=== PATIENT | female | born 2000 | race Two or more races ===

== ENCOUNTER 2022-12-22 05:41 | Emergency (ER) | payer MEDICAID, OTHER ==
[~2022-12-22] VITALS: Ht 170.2 cm; Wt 72.1 kg
[2022-12-22 05:49] VITALS: BP 119/70; PULSE 69; RESP 16; O2SAT 100
== END 2022-12-22 07:14 | disposition left against medical advice (07) ==
LOC: ER 05:41
DX: O26.891 Other specified pregnancy related conditions, first trimester (principal); G47.09 Other insomnia; Z3A.01 Less than 8 weeks gestation of pregnancy; Z53.21 Procedure and treatment not carried out due to patient leaving prior to being seen by health care provider

== ENCOUNTER 2024-04-03 14:50 | Emergency (ER) | payer MEDICAID ==
[~2024-04-03] VITALS: Ht 170.2 cm; Wt 77.0 kg
[2024-04-03 15:04] VITALS: BP 145/77; PULSE 78; RESP 18; O2SAT 98
--- NOTE | 2024-04-03 15:05 | ED.PDOC ---
History of Present Illness HPI Comments 23-year-old female with PMHx Hypothyroidism presents with a chief complaint of abdominal pain with nausea and vomiting while being currently . Patient mentions that she is currently 5 months , . Patient reports that her abdominal pain is localized diffusely, non-radiating, describes as cramping. Patient mentions that the pain is most prominent after eating food and induces vomiting. Patient denies any urinary symptoms. Patient last smoked marijuana x two weeks ago. No other symptoms or modifying factors present at this time. Time Seen by MD: 15:00 Reviewed Notes: Nurses Notes, Medications, Allergies Allergies: Coded Allergies: NO KNOWN ALLERGIES (Unverified , 12/22/22) Information Source: Patient Mode of Arrival: Ambulatory Severity: Moderate Timing: Hours Duration: Since onset Prehospital treatment: None Past Medical History PAST MEDICAL HISTORY: Thyroid (HYPOTHYROIDISM) Surgical History: Denies all surgeries HAND OR MACHINE PASTER History: Denies all HAND OR MACHINE PASTER Hx Family History Family History: Reviewed,noncontributory to illness Social History Smoker: Non-Smoker Alcohol: Denies ETOH Use Drugs: Marijuana Lives In: Home Constitutional: denies: chills, diaphoresis, fatigue, fever, malaise, sweats, weakness, others EENTM: denies: blurred vision, double vision, ear bleeding, ear discharge, ear drainage, ear pain, ear ringing, eye pain, eye redness, hearing loss, mouth pain, mouth swelling, nasal discharge, nose bleeding, nose congestion, nose pain, photophobia, tearing, throat pain, throat swelling, voice changes, others Respiratory: denies: cough, hemoptysis, orthopnea, SOB at rest, shortness of breath, SOB with excertion, stridor, wheezing, others Cardiovascular: denies: chest pain, dizzy spells, diaphoresis, Dyspnea on exertion, edema, irregular heart beat, left arm pain, lightheadedness, palpitations, PND, syncope, others Gastrointestinal: reports: abdominal pain, nausea, vomiting; denies: abdomen distended, blood streaked bowels, constipated, diarrhea, dysphagia, difficulty swallowing, hematemesis, melena, poor appetite, poor fluid intake, rectal bleeding, rectal pain, others Genitourinary: reports: ; denies: abnormal vagina bleeding, burning, dyspareunia, dysuria, flank pain, frequency, hematuria, incontinence, pain, vagina discharge, urgency, others Neurological: denies: dizziness, fainting, headache, left sided numbness, left sided weakness, numbness, paresthesia, pre-existing deficit, right sided numbness, right sided weakness, seizure, speech problems, tingling, tremors, weakness, others Musculoskeletal: denies: back pain, gout, joint pain, joint swelling, muscle pain, muscle stiffness, neck pain, others Integumetry: denies: bruises, change in color, change in hair/nails, dryness, laceration, lesions, lumps, rash, wounds, others Allergic/Immunocompromised: denies: Difficulty Healing, Frequent Infections, Hives, Itching, others Hematologic/Lymphatic: denies: anemia, blood clots, easy bleeding, easy bruising, swollen glands, others Endocrine: denies: excessive hunger, excessive sweating, excessive thirst, excessive urination, flushing, intolerance to cold, intolerance to heat, unexplained weight gain, unexplained weight loss, others Psychiatric: denies: anxiety, bipolar disorder, depression, hopeless, panic disorder, schizophrenia, sleepless, suicidal, others All Other Systems: Reviewed and Negative Physical Exam General Appearance: No Apparent Distress HEENT: Normal ENT Inspection, Pharynx Normal, TMs Normal Neck: Full Range of Motion, Non-Tender, Normal, Normal Inspection Respiratory: Chest Non-Tender, Lungs Clear, No Accessory Muscle Use, No Res piratory Distress, Normal Breath Sounds Cardiovascular: No Edema, No JVD, No Murmur, No Gallop, Normal Peripheral Pulses, Regular Rate/Rhythm Breast Exam: Deferred Gastrointestinal: Non Tender, No Pulsatile Mass, Normal Bowel Sounds, Soft, Other (Gravid uterus) Genitalia: Deferred Pelvic: Deferred Rectal: Deferred Extremities: No calf tenderness, Normal capillary refill, Normal inspection, Normal range of motion, Non-tender, No pedal edema Musculoskeletal : Apperance: Normal Neurologic: Alert, railroad detective II-XII nml as Tested, No Motor Deficits, Normal Affect, Normal Mood, No Sensory Deficits Cerebellar Function: Normal Reflexes: Normal Skin: Dry, Normal Color, Warm Lymphatic: No Adenopathy Was a procedure done? Was a procedure done?: No Differential Dx Considerations may include: Hyperemesis gravidarum Abdominal pain in X-Ray, Labs, Meds, VS The patient was being sent to labor and delivery for further evaluation The patient was officially cleared from the emergency department's Time of 1ST Reevaluation: 15:30 Reevaluation 1ST: Unchanged Patient Education/Counseling: Diagnosis, Treatment, Prognosis Family Education/Counseling: No Family Present Departure 1 Departure Time of Disposition: 15:09 Impression: Primary Impression: Abdominal pain in Qualified Codes: O26.899 - Other specified related conditions, unspecified trimester; R10.9 - Unspecified abdominal pain Disposition: 01 HOME / SELF CARE / HOMELESS (The patient was cleared to go to labor and delivery) Condition: Fair Critical Care Note Critical Care Time?: No Stability Stability form required: No Heart Score Heart Score: Heart Score Response (Comments) Value History N/A 0 EKG N/A 0 Age N/A 0 Risk Factors N/A 0 Troponin N/A 0 Total 0 I personally scribed for ELIZABETH SAENZ MD ([email or web address]) on 04/03/24 at 15:05. Electronically submitted by Luis Reese ([email or web address]). ELIZABETH SAENZ MD Apr 03, 2024 15:05
[2024-04-03] MEDS ORDERED: ASPI1TAB20 PO (17:08)
[2024-04-03] MEDS ORDERED: DOXY25TA9 PO (17:08)
[2024-04-03] MEDS ORDERED: PYRI1TAB10 PO (17:08)
== END 2024-04-03 15:40 | disposition left against medical advice (07) ==
LOC: ER 14:50
DX: O26.892 Other specified pregnancy related conditions, second trimester (principal); R10.9 Unspecified abdominal pain; O21.9 Vomiting of pregnancy, unspecified; E03.9 Hypothyroidism, unspecified; Z3A.21 21 weeks gestation of pregnancy

== ENCOUNTER 2024-04-03 15:08 | Observation (INO) | payer MEDICAID ==
--- NOTE | 2024-04-03 17:05 | DVHDS2 ---
Physician Discharge Progress N Final Diagnosis: round ligament pain N/V - resolved Operations or Procedures: Operations or Procedures S: 23yo IUP@21.5wks presents to OB triage from ED with c/o cramping and N/V today but now it is gone. No PNC, moved from [place] and has [place] [facility]. She has called [facility] so they switch to IE, but still pending. Denies UTI s/sx. Pt reports taking rx PNV but they made her more sick, so she stopped. +FM, denies VB/UCs O: VSS UA wnl +FHTs via doppler by RN Abdomen palpated soft TOCO: no UCs noted A: 23yo IUP@21.5wks Round ligament pain N/V, resolved P: D/C home Stay hydrated and eat small meals q2-3hrs to aid in nausea Recommended taking OTC PNV with methylfolate not folic acid. Rx sent for baby aspirin/vitamin B6/unisom SAB precautions reviewed Dr. Urbano consulted, agrees with POC. Pt scheduled to see Dr. Urbano at [facility] on 04/08/24 at 0900 to establish care and get assistance with medi-connor. Condition on Discharge: Stable Disposition: Home Discharge Instructions: Diet: Regular Activity: No Restrictions, As Tolerated Medications: see med list Follow Up Care: Specialist: Pt scheduled to see Dr. Urbano at [facility] on 04/08/24 at 0900 to establish care and get assistance with medi-con[facility]. Discharge Statement: "Patient was advised to return to the ER or call 911 if any headaches, dizziness, shortness of breath, chest pain, abdominal pain, bleeding, fevers, or worsening of medical condition. Patient was counseled about treatment plan, medications, possible side effects, patientverbalized understanding. All questions were answered to the best of my ability. This discharge took greater then 30 minutes in planning, reviewing documentation, counseling the patient, and discussing with other team members." LINK CABRAL CNM Apr 03, 2024 17:05
[2024-04-03] MEDS ORDERED: DOXY25TA9 PO (17:08)
[2024-04-03] MEDS ORDERED: ASPI1TAB20 PO (17:08)
[2024-04-03] MEDS ORDERED: PYRI1TAB10 PO (17:08)
== END 2024-04-03 16:26 | disposition home or self-care (01) ==
LOC: LDRP 15:08 → UNDOADMOB 15:08 → LDRP 15:24 → UNDODISOB 16:26
PROVIDERS: ADMIT Obstetrics & Gynecology; ATTEND Obstetrics & Gynecology
DX: O26.892 Other specified pregnancy related conditions, second trimester (principal); R10.2 Pelvic and perineal pain; O99.322 Drug use complicating pregnancy, second trimester; F12.90 Cannabis use, unspecified, uncomplicated; Z3A.21 21 weeks gestation of pregnancy; Z79.899 Other long term (current) drug therapy
CPT/HCPCS: 59025; 81002; 94760; G0378

== ENCOUNTER 2024-04-22 10:55 | Observation (INO) | payer MEDICAID ==
[~2024-04-22 10:55] MED LIST: ASPI1TAB20 PO; DOXY25TA9 PO; PYRI1TAB10 PO
[2024-04-22 11:35] LABS: Urine Bacteria None Seen /hpf (None Seen)
[2024-04-22 11:51] LABS: Urine Blood Negative /uL (Negative); Urine Clarity Clear (Clear); Urine Color Light-Yellow (Yellow); Urine Mucus FEW (None Seen); Urine Protein, UAD TRACE (Negative); Urine Specific Gravity 1.022 (1.001-1.035); Urine Urobilinogen Normal (Negative); Urine WBC 2 /hpf (0 - 5); Urine pH 7.5 (5.0-9.0)
[2024-04-22 12:01] LABS: Cannabinoid Screen, Urine Pos (NEGATIVE)
--- NOTE | 2024-04-22 12:06 | DVHDS2 ---
Physician Discharge Progress N Final Diagnosis: PTL Operations or Procedures: Operations or Procedures NST,SONO Condition on Discharge: Good Disposition: Home Discharge Instructions: Diet: Regular Activity: No Restrictions, As Tolerated Medications: NA Follow Up Care: Specialist: 2D Discharge Statement: "Patient was advised to return to the ER or call 911 if any headaches, dizziness, shortness of breath, chest pain, abdominal pain, bleeding, fevers, or worsening of medical condition. Patient was counseled about treatment plan, medications, possible side effects, patientverbalized understanding. All questions were answered to the best of my ability. This discharge took greater then 30 minutes in planning, reviewing documentation, counseling the patient, and discussing with other team members." LISSETT ROSA DO Apr 22, 2024 12:06
[2024-04-22 12:11] LABS: Amphetamine Screen, Urine Neg (NEGATIVE); Barbiturate Scree,Urine Neg (NEGATIVE); Benzodiazephine Screen, Urine Neg (NEGATIVE); Cocaine Screen, Urine Neg (NEGATIVE); Opiate Scree,Urine Neg (NEGATIVE); Phencyclidine Screen, Urine Neg (NEGATIVE)
--- NOTE | 2024-04-22 12:24 | DVH ---
OB ULTRASOUND COMPLETE: HISTORY: No care/ cramping TECHNIQUE: Multiple real-time grayscale images of the gravid uterus with duplex Doppler color flow an d M-mode spectral analysis. FINDINGS: IUP single live fetus at 25 weeks 0 days average ultrasound age (AUA) based on composite averages of the BPD, head circumference, abdominal circumference and femur length MEASUREMENTS: BPD: 6.2 cm GA: 25w 1d HC: 23.3 cm GA: 25w 2d AC: 19.5 cm GA: 24w 1d FL: 4.6 cm GA: 25w 2d Estimated weight 725 grams heart rate 147 beats per minute Subjectively adequate with MVP of 4.4 cm. Cephalic Presentation Anterior Placenta without previa or abruption Cervix measuring 2.4 cm Intrauterine fibroid is visualized posterior to the placenta measuring 2.7 cm. IMPRESSION: IUP single live fetus at 25 weeks 0 days AUA corresponding to an JESSA of 08/05/2024. Cervix measures 2.4 cm and is shortened.
== END 2024-04-22 12:13 | disposition home or self-care (01) ==
LOC: UNDOADMOB 10:55 → LDRP 10:55 → UNDODISOB 12:13
PROVIDERS: ADMIT Obstetrics & Gynecology; ATTEND Obstetrics & Gynecology
DX: O60.02 Preterm labor without delivery, second trimester (principal); Z98.890 Other specified postprocedural states; Z79.899 Other long term (current) drug therapy; Z3A.24 24 weeks gestation of pregnancy
CPT/HCPCS: 59025; 76805; 80307; 81001; 81002; 94760; G0378

== ENCOUNTER 2024-04-24 16:04 | Observation (INO) | payer MEDICAID ==
[2024-04-24] MEDS ORDERED: PREN-96 PO (17:08)
[2024-04-24 18:45] LABS: Basophils # (auto) 0 10 ^3/uL (0-0.2); Basophils % (auto) 0.5 % (0.0-2.0); Eosinophils # (auto) 0.1 10 ^3/uL (0-0.8); Eosinophils % (auto) 1.1 % (0.0-7.0); Hematocrit 41.8 % (36.0-46.0); Hemoglobin 14.2 g/dL (12.2-16.2); Lymphocytes # (auto) 2.5 10 ^3/uL (0.4-5.4); Mean Corpuscular Hemoglobin 32.6 pg (28.0-32.0); Mean Corpuscular Volume 95.9 fL (80.0-100.0); Monocytes # (auto) 0.7 10 ^3/uL (0-1.3); Neutrophils # (auto) 6.7 10 ^3/uL (1.6-8.6); Neutrophils % (auto) 66.4 % (37.0-80.0); Platelet Count (auto) 203 10^3/uL (140-450); Red Blood Cells 4.36 10^6/uL (4.0-5.20); Red Cell Distribution Width 12.8 % (11.8-14.3); White Blood Cell 10.1 10^3/uL (4.4-10.8)
--- NOTE | 2024-04-24 18:45 | DVHDS2 ---
Physician Discharge Progress N Final Diagnosis: short cervix and wellbeing established Operations or Procedures: Operations or Procedures S: 23yo IUP@24.5wks presents to OB triage for wellness check. No PNC except for OB triage visits here, moved from [place] and has [facility]. She has called [facility] so they switch to IE, but still pending. Denies UTI s/sx. Pt reports taking PNV. +FM, denies VB/UCs/vaginal pressure. Pt reports PMH of hyperthyroidism and does not take medications. O: VSS UA wnl NST reactive for GA TOCO: no UCs noted Short cervix of 2.4 cm noted on OB sono on 04/22/24 OB panel labs ordered A: 23yo IUP@24.5wks wellbeing established Short cervix P: D/C home Continue Pelvic rest until care is established [facility]/PTL precautions reviewed Dr. Urbano consulted, agrees with POC Condition on Discharge: Stable Disposition: Home Discharge Instructions: Diet: Regular Activity: See Comment Activity comment: pelvic rest Medications: see med list Follow Up Care: Specialist: establish PNC in [facility] until [facility] changes to [facility] Discharge Statement: "Patient was advised to return to the ER or call 911 if any headaches, dizziness, shortness of breath, chest pain, abdominal pain, bleeding, fevers, or worsening of medical condition. Patient was counseled about treatment plan, medications, possible side effects, patientverbalized understanding. All questions were answered to the best of my ability. This discharge took greater then 30 minutes in planning, reviewing documentation, counseling the patient, and discussing with other team members." LINK CABRAL CNM Apr 24, 2024 18:45
[2024-04-24 18:54] LABS: Albumin 4.4 g/dL (3.2-4.8); Alkaline Phosphatase 74 U/L (46-116); Anion Gap 7 (5-15); BUN/Creatinine Ratio 9.4 (10.0-20.0); Calcium 10.1 mg/dL (8.7-10.4); Carbon Dioxide 23 mmol/L (20-31); Potassium 3.6 mmol/L (3.5-5.1); Sodium 137 mmol/L (136-145); Total Protein 7.2 g/dL (5.7-8.2)
[2024-04-24 19:01] LABS: Alanine Aminotransferase < 9 U/L (7-40); Aspartate Aminotransferase 11 U/L (13-40); Bilirubin, Total 0.3 mg/dL (0.2-1.0); Blood Urea Nitrogen 5 mg/dL (9-23); Chloride 107 mmol/L (98-107); Glucose 72 mg/dL (74-106)
[2024-04-24 19:11] LABS: INR 0.97 (0.9-1.15); Partial Thromboplastin Time 27.7 SEC (24.5-34.5); Prothrombin Time 10.3 sec (9.3-11.8)
[2024-04-26 07:06] LABS: RPR Non Reactive (Non Reactive); Rubella Antibodies, IgG 2.13 index (Immune >0.99)
[2024-04-26 14:06] LABS: QuantiFERON-TB Gold Plus Negative (Negative)
== END 2024-04-24 17:36 | disposition home or self-care (01) ==
LOC: UNDOADMOB 16:04 → LDRP 16:04 → UNDODISOB 17:36
PROVIDERS: ADMIT Obstetrics & Gynecology; ATTEND Obstetrics & Gynecology
DX: O26.872 Cervical shortening, second trimester (principal); O99.282 Endocrine, nutritional and metabolic diseases complicating pregnancy, second trimester; E05.90 Thyrotoxicosis, unspecified without thyrotoxic crisis or storm; Z3A.24 24 weeks gestation of pregnancy; Z79.899 Other long term (current) drug therapy
CPT/HCPCS: 36415; 59025; 80053; 81002; 83036; 84439; 84443; 85025; 85610; 85730; 86592; 86703; 86762; 86780; 86803; 86850; 86900; 86901; 87340; 94760; G0378